=== PATIENT | female | born 1970 | race African-American/Black ===

== ENCOUNTER 2017-07-05 10:53 | Emergency (ER) | payer OTHER ==
[~2017-07-05] VITALS: Ht 167.6 cm; Wt 84.1 kg
[~2017-07-05 10:53] MED LIST: PHENY100 PO; PROME5L PO
[2017-07-05] MEDS ORDERED: METHOCARBAMOL 500 MG TABLET PO ONE (12:30)
[2017-07-05] MEDS ORDERED: KETOROLAC TROMETHAMINE 60 MG/2 ML VIAL IM ONE (12:30)
[2017-07-05 13:19] VITALS: BP 141/92
== END 2017-07-05 13:30 | disposition home or self-care (01) ==
LOC: EMS 10:54
DX: S39.012A Strain of muscle, fascia and tendon of lower back, initial encounter (principal); S16.1XXA Strain of muscle, fascia and tendon at neck level, initial encounter; R03.0 Elevated blood-pressure reading, without diagnosis of hypertension; Z88.6 Allergy status to analgesic agent; X58.XXXA Exposure to other specified factors, initial encounter; Y93.89 Activity, other specified; Y92.89 Other specified places as the place of occurrence of the external cause; Y99.8 Other external cause status
CPT/HCPCS: 96372; 99283; J1885

== ENCOUNTER 2017-09-11 21:35 | Emergency (ER) | payer SELFPAY ==
[~2017-09-11] VITALS: Ht 167.6 cm; Wt 90.0 kg
[~2017-09-11 21:35] MED LIST changes: -PROME5L PO
[2017-09-11 21:40] VITALS: BP 158/106
[2017-09-11] MEDS ORDERED: GABA-531 PO (21:51)
[2017-09-11] MEDS ORDERED: MET750 PO (21:51)
[2017-09-11 22:13] LABS: BASOPHILS % (AUTO) 1.2 % (0.0-2.0); EOSINOPHILS % (AUTO) 0.5 % (1.0-6.0); HEMATOCRIT 32.6 % (36-46); HEMOGLOBIN 10.4 g/dL (12.0-16.0); LYMPHOCYTES # (AUTO) 1.8 K/uL (1.0-4.8); LYMPHOCYTES % (AUTO) 18.2 % (22.0-44.0); MEAN CORPUSCULAR HEMOGLOBIN 23.2 pg (26.0-34.0); MEAN CORPUSCULAR HGB CONC 31.9 G/dL (31.0-37.0); MEAN CORPUSCULAR VOLUME 73 fL (80-100); MONOCYTES # (AUTO) 0.6 K/uL (0.1-1.0); MONOCYTES % (AUTO) 5.7 % (2.0-9.0); NEUTROPHILS # (AUTO) 7.4 K/uL (1.8-7.7); NEUTROPHILS % (AUTO) 74.4 % (40.0-70.0); PLATELET COUNT (AUTO) 304 K/uL (150-450); RED BLOOD CELL COUNT(AUTO) 4.47 MIL/uL (4.00-5.20); RED CELL DISTRIBUTION WIDTH 23.5 % (11.5-14.5)
[2017-09-11 22:23] LABS: ANION GAP 7 mmol/L (8-16); CALCIUM, TOTAL 8.4 mg/dL (8.8-10.5); CARBON DIOXIDE 27 mmol/L (22-29); CHLORIDE 104 mmol/L (98-107); CREATININE 0.99 mg/dL (0.60-1.30); GLOMERULAR FILTR. RATE CALC 60 mL/min (>60); GLUCOSE,RANDOM 91 mg/dL (70-110); POTASSIUM 3.2 mmol/L (3.5-5.1); SODIUM SERUM 138 mmol/L (136-145); UREA NITROGEN, BLOOD 10 mg/dL (7-18)
[2017-09-11 22:28] LABS: ALANINE AMINOTRANSFERASE 19 U/L (12-78); ALBUMIN 3.6 g/dL (3.4-5.0); ALKALINE PHOSPHATASE 73 U/L (46-116); ASPARTATE AMINOTRANSFERASE 20 U/L (15-37); BILIRUBIN,TOTAL 0.2 mg/dL (0.1-1.0); TOTAL PROTEIN, SERUM 7.9 g/dL (6.4-8.2)
[2017-09-11 22:31] LABS: PLATELET MORPHOLOGY COMMENT GIANT PLTS PRESENT
== END 2017-09-11 23:30 | disposition left against medical advice (07) ==
LOC: EMS 21:39
DX: R56.9 Unspecified convulsions (principal); Z53.21 Procedure and treatment not carried out due to patient leaving prior to being seen by health care provider
CPT/HCPCS: 36415; 80053; 80185; 84703; 85025; 99281; G0480

== ENCOUNTER 2018-06-12 17:59 | Emergency (ER) | payer OTHER ==
[~2018-06-12] VITALS: Ht 167.6 cm; Wt 95.5 kg
[~2018-06-12 17:59] MED LIST changes: +GABA-531 PO; +MET750 PO
[2018-06-12] MEDS ORDERED: FENT-76 TD (18:14)
[2018-06-12] MEDS ORDERED: HYDR-4455 PO (18:14)
[2018-06-12] MEDS ORDERED: FAMO20 PO (18:14)
[2018-06-12] MEDS ORDERED: HYDROCODONE/ACETAMINOPHEN 10-325 MG TABLET PO ONE (20:30)
[2018-06-12 20:37] LABS: BASOPHILS % (AUTO) 0.8 % (0.0-2.0); HEMATOCRIT 36.2 % (36-46); HEMOGLOBIN 11.8 g/dL (12.0-16.0); LYMPHOCYTES # (AUTO) 2.3 K/uL (1.0-4.8); LYMPHOCYTES % (AUTO) 27.5 % (22.0-44.0); MEAN CORPUSCULAR HEMOGLOBIN 26.1 pg (26.0-34.0); MEAN CORPUSCULAR HGB CONC 32.5 G/dL (31.0-37.0); MEAN CORPUSCULAR VOLUME 80 fL (80-100); MONOCYTES # (AUTO) 0.5 K/uL (0.1-1.0); MONOCYTES % (AUTO) 6.3 % (2.0-9.0); NEUTROPHILS # (AUTO) 5.5 K/uL (1.8-7.7); NEUTROPHILS % (AUTO) 64.4 % (40.0-70.0); PLATELET COUNT (AUTO) 327 K/uL (150-450); RED BLOOD CELL COUNT(AUTO) 4.52 MIL/uL (4.00-5.20); RED CELL DISTRIBUTION WIDTH 14.8 % (11.5-14.5)
[2018-06-12 20:56] LABS: CREATININE 0.99 mg/dL (0.60-1.30)
[2018-06-12 21:00] LABS: ALBUMIN 3.3 g/dL (3.4-5.0); BILIRUBIN,TOTAL 0.2 mg/dL (0.1-1.0); TOTAL PROTEIN, SERUM 7.4 g/dL (6.4-8.2)
[2018-06-12 21:01] LABS: APPEARANCE,URINE CLOUDY (CLEAR); BILIRUBIN,URINE NEGATIVE (NEGATIVE); GLUCOSE, URINE (UA) NEGATIVE (NEGATIVE); KETONES,URINE NEGATIVE (NEGATIVE); LEUKOCYTE ESTERASE ,URINE LARGE (NEGATIVE); NITRATE,URINE POSITIVE (NEGATIVE); OCCULT BLOOD,URINE NEGATIVE (NEGATIVE); PROTEIN,URINE TRACE (NEGATIVE); UROBILINOGEN,URINE 0.2 mg/dL (<=1.0)
[2018-06-12 21:18] LABS: BACTERIA,URINE Many /HPF (None Seen); RBC,URINE None Seen /HPF (0-2); SQUAMOUS EPITHELIAL CELL,UR Moderate /LPF (None Seen); WBC,URINE 26-50 /HPF (0-5)
[2018-06-12 21:24] VITALS: BP 149/82
[2018-06-12] MEDS ORDERED: NITROFURANTOIN/NITROFURAN MAC 100 MG CAPSULE [MACROBID] PO ONE (22:00)
== END 2018-06-12 22:00 | disposition home or self-care (01) ==
LOC: EMS 18:00
DX: N39.0 Urinary tract infection, site not specified (principal); G89.29 Other chronic pain; F12.90 Cannabis use, unspecified, uncomplicated; Z88.6 Allergy status to analgesic agent
CPT/HCPCS: 76856; 87086

== ENCOUNTER 2021-02-09 14:39 | Emergency (ER) | payer OTHER ==
[~2021-02-09] VITALS: Ht 177.8 cm; Wt 90.9 kg
[~2021-02-09 14:39] MED LIST changes: +FAMO20 PO; +FENT-76 TD; +GABA-1181 PO; -GABA-531 PO; +HYDR-4455 PO; -MET750 PO
[2021-02-09] MEDS ORDERED: NAPROXEN 250 MG TABLET PO ONE (15:45)
[2021-02-09 15:56] VITALS: BP 159/91
== END 2021-02-09 16:04 | disposition home or self-care (01) ==
LOC: EMS 14:39
DX: G56.02 Carpal tunnel syndrome, left upper limb (principal); M25.571 Pain in right ankle and joints of right foot; Z79.899 Other long term (current) drug therapy; M54.50 Low back pain, unspecified
CPT/HCPCS: 99283

== ENCOUNTER 2021-05-28 01:12 | Emergency (ER) | payer MEDICARE, OTHER ==
[~2021-05-28] VITALS: Ht 167.6 cm; Wt 85.9 kg
[2021-05-28] MEDS ORDERED: SODIUM CHLORIDE 0.9% 1,000 ML IV ONE (01:45)
[2021-05-28] MEDS ORDERED: LORazepam 2 MG/ML VIAL IVP ONE (01:45)
[2021-05-28 02:01] LABS: ANION GAP 9 mmol/L (8-16); BASOPHILS % (AUTO) 0.8 % (0.0-2.0); CALCIUM, TOTAL 8.8 mg/dL (8.8-10.5); CARBON DIOXIDE 25 mmol/L (22-29); CHLORIDE 101 mmol/L (98-107); CREATININE 1.07 mg/dL (0.60-1.30); EOSINOPHILS % (AUTO) 1.7 % (1.0-6.0); GLOMERULAR FILTR. RATE CALC 54 mL/min (>60); GLUCOSE,RANDOM 97 mg/dL (70-110); HEMATOCRIT 29.7 % (36-46); HEMOGLOBIN 9.4 g/dL (12.0-16.0); LYMPHOCYTES # (AUTO) 2.6 K/uL (1.0-4.8); LYMPHOCYTES % (AUTO) 27.5 % (22.0-44.0); MEAN CORPUSCULAR HEMOGLOBIN 21.5 pg (26.0-34.0); MEAN CORPUSCULAR HGB CONC 31.5 G/dL (31.0-37.0); MEAN CORPUSCULAR VOLUME 68 fL (80-100); MONOCYTES # (AUTO) 0.7 K/uL (0.1-1.0); MONOCYTES % (AUTO) 7.3 % (2.0-9.0); NEUTROPHILS % (AUTO) 62.7 % (40.0-70.0); PLATELET COUNT (AUTO) 377 K/uL (150-450); POTASSIUM 3.9 mmol/L (3.5-5.1); RED BLOOD CELL COUNT(AUTO) 4.35 MIL/uL (4.00-5.20); RED CELL DISTRIBUTION WIDTH 18.1 % (11.5-14.5); SODIUM SERUM 135 mmol/L (136-145); UREA NITROGEN, BLOOD 14 mg/dL (7-18)
[2021-05-28 02:07] LABS: ALANINE AMINOTRANSFERASE 25 U/L (12-78); ALBUMIN 3.2 g/dL (3.4-5.0); ALKALINE PHOSPHATASE 83 U/L (46-116); ASPARTATE AMINOTRANSFERASE 28 U/L (15-37); BILIRUBIN,TOTAL 0.2 mg/dL (0.1-1.0)
[2021-05-28] MEDS ORDERED: PHENYTOIN SODIUM 1,000 MG in SODIUM CHLORIDE 0.9% 150 ML IV ONE (03:00)
[2021-05-28 04:28] LABS: AMPHET/METH SCREEN,URINE POSITIVE (NEGATIVE); BARBITURATE SCREEN, URINE NEGATIVE (NEGATIVE); BENZODIAZEPINES SCREEN,URINE NEGATIVE (NEGATIVE); CANNABINOID SCREEN,URINE NEGATIVE (NEGATIVE); COCAINE SCREEN,URINE NEGATIVE (NEGATIVE); METHADONE SCREEN, URINE NEGATIVE (NEGATIVE); OPIATE SCREEN,URINE NEGATIVE (NEGATIVE)
[2021-05-28] MEDS ORDERED: PHENYTOIN 100 MG/4 ML SUSPENSION UDCUP PO ONE (04:30)
[2021-05-28 04:49] LABS: PHENCYCLIDINE SCREEN,URINE NEGATIVE (NEGATIVE)
[2021-05-28 05:49] VITALS: BP 145/75
== END 2021-05-28 05:51 | disposition home or self-care (01) ==
LOC: EMS 01:14
DX: G40.909 Epilepsy, unspecified, not intractable, without status epilepticus (principal); F41.9 Anxiety disorder, unspecified; I10 Essential (primary) hypertension; F12.90 Cannabis use, unspecified, uncomplicated; Z88.6 Allergy status to analgesic agent; Z79.899 Other long term (current) drug therapy
CPT/HCPCS: 36415; 80053; 80185; 80307; 82962; 85025; 96361; 96365; 96375; 99285; G0480; J1165; J2060; J7030; J7050

== ENCOUNTER 2021-12-18 17:07 | Emergency (ER) | payer OTHER, MEDICAID ==
[~2021-12-18] VITALS: Ht 167.6 cm; Wt 86.3 kg
[2021-12-18] MEDS ORDERED: DIPH25CA85 PO (19:18)
[2021-12-18] MEDS ORDERED: OLAN5TAB52 PO (19:18)
[2021-12-18] MEDS ORDERED: AMLO-257 PO (19:18)
[2021-12-18 19:50] LABS: GLUCOMETER DEV NAME(LOC) ERT.5; GLUCOSE,POINT OF CARE 97 MG/DL (70-110)
[2021-12-18 19:55] LABS: BASOPHILS % (AUTO) 1.2 % (0.0-2.0); EOSINOPHILS % (AUTO) 2.6 % (1.0-6.0); HEMATOCRIT 28.3 % (36-46); HEMOGLOBIN 8.8 g/dL (12.0-16.0); LYMPHOCYTES # (AUTO) 2.1 K/uL (1.0-4.8); LYMPHOCYTES % (AUTO) 27.7 % (22.0-44.0); MEAN CORPUSCULAR HEMOGLOBIN 21.8 pg (26.0-34.0); MEAN CORPUSCULAR HGB CONC 31.2 G/dL (31.0-37.0); MEAN CORPUSCULAR VOLUME 70 fL (80-100); MONOCYTES # (AUTO) 0.5 K/uL (0.1-1.0); NEUTROPHILS # (AUTO) 4.7 K/uL (1.8-7.7); NEUTROPHILS % (AUTO) 61.5 % (40.0-70.0); PLATELET COUNT (AUTO) 345 K/uL (150-450); RED BLOOD CELL COUNT(AUTO) 4.05 MIL/uL (4.00-5.20); RED CELL DISTRIBUTION WIDTH 18.7 % (11.5-14.5)
[2021-12-18 20:04] LABS: ANION GAP 4 mmol/L (8-16); CALCIUM, TOTAL 8.9 mg/dL (8.8-10.5); CARBON DIOXIDE 28 mmol/L (22-29); CHLORIDE 106 mmol/L (98-107); CREATININE 0.72 mg/dL (0.60-1.30); GLOMERULAR FILTR. RATE CALC > 60 mL/min (>60); GLUCOSE,RANDOM 95 mg/dL (70-110); POTASSIUM 3.9 mmol/L (3.5-5.1); SODIUM SERUM 138 mmol/L (136-145); UREA NITROGEN, BLOOD 9 mg/dL (7-18)
[2021-12-18 20:08] LABS: PROTHROMBIN TIME 10.7 SEC (9.4-11.6)
[2021-12-18 20:12] LABS: ALANINE AMINOTRANSFERASE 24 U/L (12-78); ALBUMIN 2.9 g/dL (3.4-5.0); ALKALINE PHOSPHATASE 80 U/L (46-116); ASPARTATE AMINOTRANSFERASE 27 U/L (15-37); BILIRUBIN,TOTAL 0.1 mg/dL (0.1-1.0); CREATINE KINASE, TOTAL ONLY 144 U/L (26-192); TOTAL PROTEIN, SERUM 6.8 g/dL (6.4-8.2)
[2021-12-18] MEDS ORDERED: PHENYTOIN SODIUM 1,000 MG in SODIUM CHLORIDE 0.9% 150 ML IV ONE (22:00)
[2021-12-18 23:52] VITALS: BP 129/83
== END 2021-12-18 23:55 | disposition home or self-care (01) ==
LOC: EMS 17:07
DX: R56.9 Unspecified convulsions (principal); I10 Essential (primary) hypertension; F12.90 Cannabis use, unspecified, uncomplicated
CPT/HCPCS: 99285; 70450; 96365; 71045; 80053; 80185; 82550; 82962; 84484; 85025; 85610; 85730; 36415; 73030; 73080; 72125; 93005; J1165; J7050

== ENCOUNTER 2022-01-30 10:34 | Emergency (ER) | payer OTHER, MEDICAID ==
[~2022-01-30] VITALS: Ht 167.6 cm; Wt 86.5 kg
[~2022-01-30 10:34] MED LIST changes: +AMLO-257 PO; +DIPH25CA85 PO; -FAMO20 PO; -FENT-76 TD; -HYDR-4455 PO; +OLAN5TAB52 PO
[2022-01-30] MEDS ORDERED: PHENYTOIN SODIUM 1,000 MG in SODIUM CHLORIDE 0.9% 150 ML IV ONE (13:00)
[2022-01-30] MEDS ORDERED: PHENY100 PO (14:23)
[2022-01-30] MEDS ORDERED: IBUP-2070 PO (14:24)
[2022-01-30 14:59] VITALS: BP 146/87
== END 2022-01-30 15:08 | disposition home or self-care (01) ==
LOC: EMS 10:38
DX: G40.909 Epilepsy, unspecified, not intractable, without status epilepticus (principal); M25.512 Pain in left shoulder; M25.532 Pain in left wrist; I10 Essential (primary) hypertension; F17.210 Nicotine dependence, cigarettes, uncomplicated; Z88.6 Allergy status to analgesic agent; Z98.890 Other specified postprocedural states
CPT/HCPCS: 99284; 96365; 80185; 36415; 73030; 73110; J1165; J7050

== ENCOUNTER 2022-01-31 05:38 | Emergency (ER) | payer OTHER, MEDICAID ==
[~2022-01-31] VITALS: Ht 167.6 cm; Wt 85.9 kg
[~2022-01-31 05:38] MED LIST changes: +IBUP-2070 PO
[2022-01-31 05:48] VITALS: BP 161/93
[2022-01-31] MEDS ORDERED: ACETAMINOPHEN 500 MG TABLET PO ONE (06:30)
== END 2022-01-31 06:48 | disposition home or self-care (01) ==
LOC: EMS 05:39
DX: T80.89XA Other complications following infusion, transfusion and therapeutic injection, initial encounter (principal); I10 Essential (primary) hypertension; R56.9 Unspecified convulsions; M54.30 Sciatica, unspecified side; F12.90 Cannabis use, unspecified, uncomplicated; Z98.890 Other specified postprocedural states; Z88.6 Allergy status to analgesic agent; Z88.5 Allergy status to narcotic agent
CPT/HCPCS: 99282; Z7502; Z7610